=== PATIENT | female | born 1940 | race African-American/Black ===

== ENCOUNTER 2019-06-16 18:17 | Emergency (ER) | payer MEDICARE ==
[~2019-06-16] VITALS: Ht 167.6 cm; Wt 60.0 kg
[~2019-06-16 18:17] MED LIST: ASPI-1073 PO; ATOR10TA PO; ENAL10TA71 PO
[2019-06-16 18:30] VITALS: BP 200/93
== END 2019-06-16 19:40 | disposition left against medical advice (07) ==
LOC: ER 18:17
DX: Z53.21 Procedure and treatment not carried out due to patient leaving prior to being seen by health care provider (principal)